=== PATIENT | female | born 1990 | race Hispanic/Latino ===

== ENCOUNTER 2018-02-06 09:45 | Emergency (ER) | payer MEDICAID ==
[2018-02-06 10:04] LABS: APPEARANCE,URINE Clear (CLEAR); BILIRUBIN,URINE Negative (NEGATIVE); COLOR,URINE Yellow (YELLOW); GLUCOSE, URINE (UA) Negative (NEGATIVE); KETONES,URINE Negative (NEGATIVE); LEUKOCYTE ESTERASE ,URINE Negative (NEGATIVE); NITRATE,URINE Negative (NEGATIVE); OCCULT BLOOD,URINE Trace (NEGATIVE); PH,URINE 7.5 (5.0-8.0); PROTEIN,URINE Negative (NEGATIVE)
[2018-02-06 10:09] LABS: HCG,QUAL RESULT NEGATIVE (NEGATIVE)
[2018-02-06 10:18] LABS: RBC,URINE 0-1 /HPF (0-1); WBC,URINE 0-1 /HPF (0-1)
[2018-02-06 10:19] LABS: BACTERIA,URINE Rare /HPF (None Seen); SQUAMOUS EPITHELIAL CELL,UR 0-2 /HPF (0-2)
== END 2018-02-06 10:40 | disposition home or self-care (01) ==
LOC: EDH 09:45
DX: J30.89 Other allergic rhinitis (principal); R30.0 Dysuria; I10 Essential (primary) hypertension; R35.0 Frequency of micturition; Z98.890 Other specified postprocedural states
CPT/HCPCS: 81001; 81025